=== PATIENT | male | born 1990 | race African-American/Black ===

== ENCOUNTER 2021-01-28 22:25 | Emergency (ER) | payer OTHER ==
[2021-02-06 08:54] LABS: PLATELET COUNT 332 K/uL (142-355); POTASSIUM 3.9 mmol/L (3.6-5.2)
== END 2021-01-29 01:08 | disposition home or self-care (01) ==
LOC: ED 22:25
PROVIDERS: Family Medicine
DX: T78.1XXA Other adverse food reactions, not elsewhere classified, initial encounter (principal); L50.0 Allergic urticaria; E87.1 Hypo-osmolality and hyponatremia; E87.6 Hypokalemia
CPT/HCPCS: 36415; 80053; 80307; 81000; 85027; 96360; 96361; 96375; 99284; J1200; J2930

== ENCOUNTER 2022-04-28 23:59 | Emergency (ER) | payer OTHER ==
[~2022-04-28] VITALS: Ht 167.6 cm; Wt 99.8 kg
[2022-04-29 01:20] VITALS: BP 166/106; TEMP 98.1
== END 2022-04-29 01:25 | disposition home or self-care (01) ==
LOC: ED 23:59
DX: L50.8 Other urticaria (principal); T78.1XXA Other adverse food reactions, not elsewhere classified, initial encounter; X58.XXXA Exposure to other specified factors, initial encounter; Y92.89 Other specified places as the place of occurrence of the external cause
CPT/HCPCS: 96372; 99282; J1200; J2930